=== PATIENT | male | born 1960 | race Caucasian/White ===

== ENCOUNTER 2016-08-01 18:56 | Emergency (ER) | payer MEDICAID ==
[2016-08-01] MEDS ORDERED: PROMETHAZINE 25 MG/ML VIAL ONE (22:24)
== END 2016-08-01 23:18 | disposition home or self-care (01) ==
LOC: ER 18:56
DX: K80.50 Calculus of bile duct without cholangitis or cholecystitis without obstruction (principal); F17.210 Nicotine dependence, cigarettes, uncomplicated
CPT/HCPCS: 36415; 80053; 81001; 83690; 85025; 86677; 96374